=== PATIENT | female | born 1965 | race Caucasian/White ===

== ENCOUNTER → 2016-04-23 | Outpatient (CLI) | payer MEDICARE, OTHER ==
[~2016-04-23] VITALS: Ht 165.1 cm; Wt 94.3 kg
[~2016-04-23] MED LIST: ALBU0.63 IH; ASPI-586 PO; ATOR40TA70 PO; CARV3.122 PO; CITA40TA11 PO; DOCU-143 PO; FAMO20TA3 PO; FURO40TA4 PO; GABA800T2 PO; GLIP5TAB13 PO; HYDR-3812 PO; HYDR-700 PO; LAMO25TA PO; LEVO50TA6 PO; LIDOCAINE 1% INJ 20 ML (XYLOCAINE) VIAL INJ ONE; LIDOCAINE 1% INJ 20 ML (XYLOCAINE) VIAL ONE; LISI2.5T PO; PANT40TA2 PO; TIZA4TAB3 PO; TOPI50TA13 PO; TRAM50TA2 PO; TRAZ100T92 PO
[2016-04-23 12:46] VITALS: BP 138/80
[2016-04-23 13:49] VITALS: BP 138/80
--- NOTE | 2016-04-23 15:25 | Diagnostic Imaging Report ---
EXAMINATION: Ultrasound-guided biopsy of a breast mass. A metallic clip placed to holland biopsy site. INDICATION: Left breast mass. CONSENT: Informed consent was obtained from the patient. The risks, benefits, potential complications and alternatives were reviewed and all questions answered to the patient's satisfaction. FINDINGS: Ultrasound images demonstrate a 10:00 left breast mass. PROCEDURE: After sterile preparation and draping, 1% lidocaine was utilized for local anesthesia. A 13-gauge guide needle was introduced under live ultrasound guidance to the level of the lesion. Good needle position was documented with ultrasound images. 14-gauge biopsy needle was utilized and core biopsies were performed. Multiple samples were obtained and sent to pathology. A metallic clip was placed to holland the site of the biopsy. A subsequent mammogram is performed and confirms the proper positioning of the clip. The patient tolerated the procedure well with no immediate complications. IMPRESSION: Successful ultrasound-guided core biopsy of 10:00, left breast mass. Dictated by: Dictated on workstation # [id number]
--- NOTE | 2016-04-23 15:26 | Diagnostic Imaging Report ---
INDICATION: Left breast ultrasound. INDICATION: Palpable lump in the left breast. COMPARISON: The study is correlated with an outside mammogram dated 04/16/2016. FINDINGS: At the 10 o'clock zone 5 cm from the nipple, there is a 1.8 x 0.8 x 0.7 cm irregular hypoechoic mass. There is no significant shadowing. There is mildly increased internal vascularity seen with color Doppler. No other lesion is seen in the retroareolar area or four quadrants of the breasts. No axillary enlarged lymph nodes are seen. IMPRESSION: 1.8 cm irregular suspicious left breast mass at the 10 o'clock zone. An ultrasound-guided biopsy was performed just after the scan. ACR BI-RADS Category 4B: Intermediate suspicion of malignancy. Dictated by: Dictated on workstation # [id number]
--- NOTE | 2016-04-23 20:44 | Diagnostic Imaging Report ---
EXAM: CC and the lateral views of the left breast. The current study was also evaluated with a Computer Aided Detection (CAD) system. COMPARISON: 08/26/2015. INDICATION: Documentation of clip position after ultrasound-guided biopsy. FINDINGS / IMPRESSION: Satisfactory placement of a medial left breast clip after ultrasound-guided biopsy is the seen. Pathology results are pending. Dictated by: Dictated on workstation # [id number]
== END ==
LOC: RAD 12:05
PROVIDERS: ATTEND Nurse Practitioner Family
DX: R92.8 Other abnormal and inconclusive findings on diagnostic imaging of breast (principal)
CPT/HCPCS: 19083; 76641; 88305; 88341; 88342

== ENCOUNTER → 2016-04-25 | Outpatient (CLI) | payer MEDICARE, OTHER ==
[~2016-04-25] MED LIST changes: -LIDOCAINE 1% INJ 20 ML (XYLOCAINE) VIAL INJ ONE; -LIDOCAINE 1% INJ 20 ML (XYLOCAINE) VIAL ONE
--- NOTE | 2016-04-25 13:58 | Diagnostic Imaging Report ---
PROCEDURE: CT abdomen without contrast. TECHNIQUE: Multiple contiguous axial images were obtained through the abdomen without the use of intravenous contrast. INDICATION: Right and left lower quadrant abdominal pain. Lung bases are clear. There are no effusions. There is a small cyst in the inferior aspect of the posterior segment right lobe of liver. Liver otherwise normal. Gallbladder is surgically absent. The common duct is not dilated. Pancreas is unremarkable. Spleen is not enlarged. There is food residue in the stomach. Adrenals and kidneys appear normal. Visualized portions of large and small bowel appear normal. IMPRESSION: Negative CT abdomen. Dictated by: Dictated on workstation # [id number]
== END ==
LOC: RAD 13:01
PROVIDERS: ATTEND Nurse Practitioner Family
DX: R93.2 Abnormal findings on diagnostic imaging of liver and biliary tract (principal)
CPT/HCPCS: 74150

== ENCOUNTER → 2016-05-01 | Outpatient (CLI) | payer MEDICARE, OTHER ==
[~2016-05-01] MED LIST changes: +GADOBUTROL 10 MMOL/10 ML (GADAVIST) VIAL IV ONE
--- NOTE | 2016-05-01 13:31 | Diagnostic Imaging Report ---
PROCEDURE: MR imaging of the brain with and without contrast. TECHNIQUE: Multiplanar, multisequence MR imaging of the brain was performed with and without contrast. INDICATION: Right hand and bilateral leg tremors. COMPARISON: There are no prior studies available for comparison. FINDINGS: There is no mass, shift of the midline, or hemorrhage to suggest an acute intracranial abnormality. There is no abnormal enhancement on the postcontrast series to indicate a neoplastic or infectious process either. Furthermore, there is no signal abnormality arising from the brain on the diffusion series to indicate an area of acute ischemia. There are a few small areas of increased signal in the periventricular white matter on the right on the FLAIR series. These findings are nonspecific but may be secondary to encephalomalacia from microvascular ischemia. The ventricles and sulci are not abnormally dilated. There is mild cortical atrophy present. The degree of atrophy is consistent with the patient's age. The sella is not enlarged, and the expected carotid flow voids are evident bilaterally. The orbits are symmetrical and within normal limits. The sinuses are generally clear. The seventh and eighth nerve complexes are unremarkable. IMPRESSION: 1. There is no evidence for an acute intracranial abnormality. There is no sign of a mass lesion either. 2. The small areas of altered signal in the periventricular white matter on the right on the FLAIR series are nonspecific. These may be related to encephalomalacia from microvascular ischemia. Dictated by: Dictated on workstation # [id number]
== END ==
LOC: RAD 08:43
PROVIDERS: ATTEND Psychiatry & Neurology Neurology
DX: G20 Parkinson's disease (principal)
CPT/HCPCS: 70553

== ENCOUNTER 2016-05-25 10:30 | Outpatient (CLI) | payer MEDICARE ==
[~2016-05-25] VITALS: Ht 165.1 cm; Wt 93.4 kg
[2016-05-25] MEDS ORDERED: LAMO25TA PO (10:51)
[2016-05-25] MEDS ORDERED: HYDR-700 PO (10:51)
[2016-05-25] MEDS ORDERED: TRAZ100T92 PO (10:51)
[2016-05-25] MEDS ORDERED: LISI2.5T PO (10:51)
[2016-05-25] MEDS ORDERED: ASPI-586 PO (10:51)
[2016-05-25] MEDS ORDERED: FAMO20TA3 PO (10:51)
[2016-05-25] MEDS ORDERED: TRAM50TA2 PO (10:51)
[2016-05-25] MEDS ORDERED: GABA800T2 PO (10:51)
[2016-05-25] MEDS ORDERED: CITA40TA11 PO (10:51)
[2016-05-25] MEDS ORDERED: ATOR40TA70 PO (10:51)
[2016-05-25] MEDS ORDERED: TIZA4TAB3 PO (10:51)
[2016-05-25] MEDS ORDERED: FURO40TA4 PO (10:51)
[2016-05-25] MEDS ORDERED: LEVO50TA6 PO (10:51)
[2016-05-25] MEDS ORDERED: TOPI50TA13 PO (10:51)
[2016-05-25] MEDS ORDERED: ALBU0.63 IH (10:51)
[2016-05-25] MEDS ORDERED: GLIP5TAB13 PO (10:51)
[2016-05-25] MEDS ORDERED: CARV3.122 PO (10:51)
[2016-06-21] MEDS ORDERED: HYDR-3812 PO (09:59)
[2016-06-21] MEDS ORDERED: DOCU-143 PO (09:59)
== END 2016-05-25 11:26 ==
LOC: PREOP 10:30
PROVIDERS: ATTEND Surgery
DX: Z01.818 Encounter for other preprocedural examination (principal); K21.9 Gastro-esophageal reflux disease without esophagitis; R11.2 Nausea with vomiting, unspecified; R19.7 Diarrhea, unspecified

== ENCOUNTER 2016-05-29 10:11 | Day surgery (SDC) | payer MEDICARE ==
[~2016-05-29] VITALS: Ht 165.1 cm; Wt 93.4 kg
[~2016-05-29 10:11] MED LIST changes: -DOCU-143 PO; -GADOBUTROL 10 MMOL/10 ML (GADAVIST) VIAL IV ONE; -HYDR-3812 PO; -PANT40TA2 PO
[2016-05-29] MEDS ORDERED: NS IV 1000 ML 1,000 ML ONE (10:13)
[2016-05-29] MEDS ORDERED: NS IV 1000 ML 1,000 ML IV STA (10:18)
[2016-05-29 10:20] VITALS: BP 110/72
[2016-05-29] MEDS ORDERED: FLUMAZENIL (ROMAZICON) 0.1 MG/ML 5 ML VIAL INJ PRN (10:30)
[2016-05-29] MEDS ORDERED: NALOXONE 0.4 MG/ML 1 ML (NARCAN) VIAL IVP PRN (10:30)
--- NOTE | 2016-05-29 10:51 | Progress Note-Pre Operative ---
Pre-Operative Progress Note H&P Reviewed The H&P was reviewed, patient examined and no changes noted. Date H&P Reviewed: May 29, 2016 Time H&P Reviewed: 10:51 Pre-Operative Diagnosis: GERD, n/v diarrhea GERARDO JARAMILLO DO May 29, 2016 10:51 am
[2016-05-29] MEDS ORDERED: proPOfol 200 MG/20 ML (DIPRIVAN) VIAL IV ONE (10:55)
[2016-05-29] MEDS ORDERED: MIDAZOLAM 2 MG/2 ML (VERSED) VIAL ONE ×2 (10:55)
--- NOTE | 2016-05-29 11:37 | Progress Note-Post Operative ---
Post-Operative Progess Note Pre-Operative Diagnosis GERD, n/v diarrhea Post-Operative Diagnosis gastritis with erosions, hiatal hernia, normal colon Post-Op Procedure Note Date of Procedure: May 29, 2016 Name of Procedure: egd c biopsy, colonoscopy with random cold biopsies Procedure Note/Findings see note Anesthesia Type per booth manager Estimated blood loss (mL): none Specimen(s) collected antrum, random colon GERARDO JARAMILLO DO May 29, 2016 11:37
[2016-05-29] MEDS ORDERED: PANT40TA2 PO (11:40)
--- NOTE | 2016-05-29 11:40 | Discharge Inst-Simple/Standard ---
Discharge Inst-Standard Discharge Medications New, Converted or Re-Newed RX: Transmitted to Pharmacy Patient Instructions/Follow Up Plan of Care/Instructions/FU: 2 weeks Monisha Activity as Tolerated: Yes Discharge Diet: Regular Diet (small frequent meals) GERARDO JARAMILLO DO May 29, 2016 11:40
--- NOTE | 2016-05-29 11:57 | PROCEDURE REPORT ---
PROCEDURE PHYSICIAN: GERARDO JARAMILLO DATE OF PROCEDURE: 05/29/2016 PREOPERATIVE DIAGNOSIS: GERD, nausea, vomiting, diarrhea. POSTOPERATIVE DIAGNOSES: 1. Gastritis with erosions. 2. Hiatal hernia. 3. Normal colon. PROCEDURE: 1. EGD with biopsy. 2. Colonoscopy with random cold biopsies. SURGEON: Monisha. ANESTHESIA: Per SOLIDWORKS DESIGNER. ESTIMATED BLOOD LOSS: None. COMPLICATIONS: None. INDICATIONS: The patient is a 51-year-old female who has been having 2 months of nausea, vomiting, diarrhea and reflux symptoms. She understands the risks and benefits of the procedures and wished to proceed with procedures. Consent was signed on the chart. PROCEDURE: The patient was taken to the endoscopy suite, placed left lateral recumbent position. Timeout was performed. The scope was then inserted the mouth, down the esophagus, stomach and into the duodenum without difficulty. There were no polyps, masses or ulcerations within the duodenum. The scope was slowly retracted back to the stomach where it was further insufflated demonstrating erythematous changes with some erosions that had slight oozing from them. Biopsy of the antrum was obtained. The scope was retroflexed noting a small hiatal hernia. The scope was returned to its normal position and slowly withdrawn until withdrawn back into the distal esophagus. There were no polyps, masses, ulcerations or erythema present. The scope was slowly retracted with completely removed noting no other pathology. COLONOSCOPY: Digital rectal exam was performed. There were no palpable polyps, masses or ulcerations. The scope was inserted in the rectum and advanced all way to the cecum with minimal difficulty. Prep was adequate. The scope was then slowly retracted. There were no polyps, masses, ulcerations of the cecum, ascending, transverse, descending and sigmoid colon. The scope was being retracted, random cold biopsies were obtained. Once in the rectum, the scope was also retroflexed noting no further pathology. The scope was returned to its normal position and slowly withdrawn until completely removed. The patient tolerated procedure well without any complications. She was taken to the recovery room in stable condition. RECOMMENDATIONS: The patient will be started on Protonix 40 mg daily. We will see how she is does in approximately 2 to 3 weeks and go over biopsy results. Job ID: [id number] Dictated Date: 05/29/2016 11:44:32 On Air Announcer Date: 05/29/2016 11:50:23 / ruddy
[2016-05-29 12:05] VITALS: BP 113/74
[2016-05-29 12:35] VITALS: BP 117/63
[2016-05-29 12:45] VITALS: BP 117/63
[2016-06-21] MEDS ORDERED: HYDR-3812 PO (09:59)
[2016-06-21] MEDS ORDERED: DOCU-143 PO (09:59)
== END 2016-05-29 12:45 | disposition home or self-care (01) ==
LOC: ENDO 10:11
PROVIDERS: ATTEND Surgery
DX: R19.7 Diarrhea, unspecified (principal); K29.70 Gastritis, unspecified, without bleeding; K44.9 Diaphragmatic hernia without obstruction or gangrene
CPT/HCPCS: 88305; 88342

== ENCOUNTER 2016-06-18 10:18 | Outpatient (CLI) | payer MEDICARE ==
[~2016-06-18] VITALS: Ht 165.1 cm; Wt 98.0 kg
[~2016-06-18 10:18] MED LIST changes: +PANT40TA2 PO
[2016-06-18 10:38] VITALS: BP 105/60
[2016-06-18 11:06] LABS: BASOPHILS % (AUTO) 1 % (0-10); EOSINOPHILS # (AUTO) 0.1 10^3/uL (0.0-0.3); EOSINOPHILS % (AUTO) 3 % (0-10); LYMPHOCYTES # (AUTO) 2.2 X 10^3 (1.0-4.0); LYMPHOCYTES % (AUTO) 47 % (12-44); MEAN CORPUSCULAR HEMOGLOBIN 31 PG (25-34); MEAN CORPUSCULAR HGB CONC 33 G/DL (32-36); MEAN CORPUSCULAR VOLUME 95 FL (80-99); MEAN PLATELET VOLUME 10.6 FL (7.4-10.4); MONOCYTES # (AUTO) 0.3 X 10^3 (0.0-1.0); MONOCYTES % (AUTO) 6 % (0-12); NEUTROPHILS # (AUTO) 2.1 X 10^3 (1.8-7.8); NEUTROPHILS % (AUTO) 44 % (42-75); PLATELET COUNT 176 10^3/uL (130-400); RED BLOOD COUNT 4.13 10^6/uL (4.35-5.85); RED CELL DISTRIBUTION WIDTH 12.9 % (10.0-14.5); WHITE BLOOD COUNT 4.7 10^3/uL (4.3-11.0)
[2016-06-18 11:34] LABS: ANION GAP 7 MMOL/L (5-14); BLOOD UREA NITROGEN 9 MG/DL (7-18); BUN/CREATININE RATIO 12; CALCIUM 8.6 MG/DL (8.5-10.1); CARBON DIOXIDE 26 MMOL/L (21-32); CHLORIDE 108 MMOL/L (98-107); CREATININE SERUM 0.77 MG/DL (0.60-1.30); GFR ESTIMATED > 60; GLUCOSE 124 MG/DL (70-105); POTASSIUM 3.7 MMOL/L (3.6-5.0); SODIUM 141 MMOL/L (135-145)
[2016-06-21] MEDS ORDERED: HYDR-3812 PO (09:59)
[2016-06-21] MEDS ORDERED: DOCU-143 PO (09:59)
== END 2016-06-18 14:04 | disposition home or self-care (01) ==
LOC: PREOP 10:18
PROVIDERS: ATTEND Surgery
DX: Z01.812 Encounter for preprocedural laboratory examination (principal); N63 Unspecified lump in breast
CPT/HCPCS: 36415; 80048; 85025

== ENCOUNTER 2016-06-21 06:38 | Day surgery (SDC) | payer MEDICARE ==
[~2016-06-21] VITALS: Ht 165.1 cm; Wt 98.0 kg
[2016-06-21] MEDS ORDERED: CLINDAMYCIN 600 MG/50 ML IVPB 50 ML IV ONE ×2 (07:15→07:30)
[2016-06-21] MEDS ORDERED: CATHETER FLUSH 10 ML SYR IV PRN (07:30)
[2016-06-21 07:32] VITALS: BP 115/69
[2016-06-21] MEDS ORDERED: LIDOCAINE 1% INJ 20 ML (XYLOCAINE) VIAL ONE ×2 (07:38→09:08)
--- NOTE | 2016-06-21 07:46 | Progress Note-Pre Operative ---
Pre-Operative Progress Note H&P Reviewed The H&P was reviewed, patient examined and no changes noted. Date H&P Reviewed: Jun 21, 2016 Time H&P Reviewed: 07:45 Pre-Operative Diagnosis: left breast mass GERARDO JARAMILLO DO Jun 21, 2016 7:46 am
[2016-06-21] MEDS ORDERED: LIDOCAINE 1% INJ 20 ML (XYLOCAINE) VIAL INJ NR (08:00)
--- NOTE | 2016-06-21 08:34 | Diagnostic Imaging Report ---
PROCEDURE: Ultrasound-guided hookwire needle localization of breast mass . INDICATION: Left breast mass. CONSENT: Informed consent was obtained from the patient. The risks, benefits, potential complications and alternatives were reviewed and all questions answered to the patient's satisfaction. FINDINGS: Ultrasound images demonstrate an irregular left breast mass at 10:00 zone 5 CM from the nipple. PROCEDURE: After sterile preparation and draping, 1% lidocaine was utilized for local anesthesia. A hookwire introducer needle was advanced under live ultrasound guidance to the level of the lesion from a lateral to medial approach. Good needle position was documented with ultrasound images. The hookwire was deployed and the needle withdrawn, simultaneously. The patient tolerated the procedure well with no immediate complications. IMPRESSION: Successful ultrasound hookwire needle localization of 10:00 left breast mass. Dictated by: Dictated on workstation # [id number]
[2016-06-21] MEDS ORDERED: LACTATED RINGERS 1,000 ML IV PRN (08:49)
[2016-06-21] MEDS ORDERED: proPOfol 200 MG/20 ML (DIPRIVAN) VIAL IV ONE (09:04)
[2016-06-21] MEDS ORDERED: LACTATED RINGERS 1,000 ML IV ONE (09:04)
[2016-06-21] MEDS ORDERED: ONDANSETRON 4 MG/2 ML (SDV) Z0FRAN ONE (09:04)
[2016-06-21] MEDS ORDERED: SEVOFLURANE (ULTANE) 15 ML INHAL SOLN ONE (09:04)
[2016-06-21] MEDS ORDERED: LIDOCAINE PF 2% 10 ML (XYLOCAINE) AMP ONE (09:04)
[2016-06-21] MEDS ORDERED: fentaNYL INJECTION 100 MCG/2 ML AMP ONE (09:05)
[2016-06-21] MEDS ORDERED: MIDAZOLAM 2 MG/2 ML (VERSED) VIAL ONE (09:05)
[2016-06-21] MEDS ORDERED: BUPIVACAINE 0.5% 30 ML (SENSORCAINE) VIAL ONE (09:08)
--- NOTE | 2016-06-21 09:58 | Progress Note-Post Operative ---
Post-Operative Progess Note Surgeon (s)/Rn Orthopaedics (s) Surgeon GERARDO JARAMILLO DO Rn Orthopaedics: Shaquille Nwagwu Pre-Operative Diagnosis left breast mass Post-Operative Diagnosis same Post-Op Procedure Note Date of Procedure: Jun 21, 2016 Name of Procedure Performed: left breast excisional biopsy wire localized Description of the Procedure: see note Findings of the Procedure note Anesthesia Type general Estimated blood loss (mL): minimal Specimen(s) collected/removed left breast mass GERARDO JARAMILLO DO Jun 21, 2016 9:58 am
[2016-06-21] MEDS ORDERED: HYDR-3812 PO (09:59)
[2016-06-21] MEDS ORDERED: DOCU-143 PO (09:59)
[2016-06-21] MEDS ORDERED: HYDROcodone/APAP 5 MG/325 MG (LORTAB) TAB PO PRN (10:00)
--- NOTE | 2016-06-21 10:02 | Discharge Inst-Simple/Standard ---
Discharge Inst-Standard Discharge Medications New, Converted or Re-Newed RX: RX on Chart Patient Instructions/Follow Up Plan of Care/Instructions/FU: 2 weeks Monisha Activity as Tolerated: No Discharge Diet: Regular Diet Other Inst to Patient Follow up Appt: Make appointment for 2 week. Instructions: No lifting greater than 10 pounds. No strenuous activity. May shower in 24 hours, no tub bath or soaking. Use incentive spirometer at home as directed. No Smoking Skin/Wound Care: May remove bandages in 24 hours. You need to leave the white strips over incision on they will fall off on their own. Symptoms to Report: Appetite Changes, Extremity Discoloration, Numbness/Tingling, Swelling Increased , Bleeding Excessive, Eyesight Changes, Pain Increased, Urine Color Change, Constipation(Persistent), Fever over 101 degree F, Pain/Pressure in chest, Urinating Difficulty, Cough Up/Vomit Blood, Heart Beat Irreg/Pounding, Pain/ Pressure in jaw, Vaginal Bleeding Increase, Cramps in feet or legs, Lightheadedness, Pain/Pressure in shoulder, Diarrhea(Persistent), Memory Changes Suddenly, Questions/Concerns, Weight gain consecutive days, Dizziness/ Fainting, Nausea/Vomiting, Shortness of Breath, Weight gain over 2 pounds If questions or concerns contact your physician Or seek help at emergency department. GERARDO JARAMILLO DO Jun 21, 2016 10:01 am
--- NOTE | 2016-06-21 10:06 | Diagnostic Imaging Report ---
EXAMINATION: Specimen radiograph of breast lumpectomy biopsy post hookwire needle localization placement. INDICATION: Check adequacy of left breast hookwire guided excisional biopsy. FINDINGS: The left breast nodule and the biopsy clip of interest appears to be present in the specimen and therefore the specimen is considered adequate. IMPRESSION: Specimen radiograph demonstrates the hookwire and surrounding specimen that appears to contain the left breast nodule marked with a wire. Pathology is pending. Dictated by: Dictated on workstation # [id number]
[2016-06-21] MEDS ORDERED: morphine INJ 10 MG/ML 1ML (SYR OR VIAL) IVP PRN (10:15)
[2016-06-21] MEDS ORDERED: ONDANSETRON 4 MG/2 ML (SDV) Z0FRAN IVP PRN (10:15)
[2016-06-21 11:05] VITALS: BP 119/76
[2016-06-21 11:35] VITALS: BP 111/65
[2016-06-21 12:05] VITALS: BP 119/76
--- NOTE | 2016-06-21 14:58 | OPERATIVE REPORT ---
DATE OF SERVICE: 06/21/2016 PREOPERATIVE DIAGNOSIS: Left breast mass. POSTOPERATIVE DIAGNOSIS: Left breast mass. PROCEDURE PERFORMED: Left breast biopsy wire localized. SURGEON: Gerardo Bearden DO ANESTHESIA: General. ESTIMATED BLOOD LOSS: Minimal. COMPLICATIONS: None. INDICATION: The patient is a 51-year-old female with left breast mass. She had biopsy previously performed. The patient is still concerned and anxious and wishes to proceed with excisional biopsy. She understands risks and benefits of the procedure and wishes to proceed with the procedure. Consent was signed and on the chart. DESCRIPTION OF PROCEDURE: The patient was taken to the operating suite, she was prepped and draped in a sterile fashion. Surgical pause was performed. Local anesthetic with 0.5% Marcaine and 1% Xylocaine in a 50/50 ratio was used to anesthetize the area. A #15 blade scalpel was used to make an incision in which the wire was incorporated into the incision. Cautery was used to dissect down circumferentially around the wire. The diameter was approximately 4 cm in diameter. Dissection was taken down to the pectoral fascias and the area was then amputated. The specimen had clips placed on it with 2 clips superiorly and 4 clips laterally. Specimen sent for radiological evidence of removal which did demonstrate the tip of the wire and the previously placed clip within the specimen. Copious amounts of irrigation was then used to irrigate the wound. Then 3-0 Vicryl was used to reapproximate subcutaneous tissues. The skin was then closed using 4-0 Vicryl in a running subcuticular fashion. The area was then washed and dried and Dermabond was placed over the incision. The patient tolerated the procedure well without any complications. She was taken to the recovery room in stable condition. Job ID: [id number] DocumentID: [id number] Dictated Date: 06/21/2016 14:02:03 Test Desk Trouble Locator Date: 06/21/2016 14:57:53 Dictated By: GERARDO BEARDEN DO
--- NOTE | 2016-06-21 20:53 | Diagnostic Imaging Report ---
CC and lateral views of the left breast. INDICATION: Documentation of needle localization wire position. FINDINGS: There is good localization of a nodule in the posterior aspect of the 10 o'clock zone in the left breast marked with a biopsy clip adjacent to the needle localization wire located at its lateral aspect. IMPRESSION: Satisfactory position of the needle localization wire marking medial left breast nodule for surgery. Dictated by: Dictated on workstation # [id number]
== END 2016-06-21 12:05 | disposition home or self-care (01) ==
LOC: SDC 06:38
PROVIDERS: ATTEND Surgery
DX: D24.2 Benign neoplasm of left breast (principal); N60.92 Unspecified benign mammary dysplasia of left breast; E11.9 Type 2 diabetes mellitus without complications
CPT/HCPCS: 19285; 76098; 82962; 87081; 88305; 88341; 88342

== ENCOUNTER → 2016-08-01 | Outpatient (CLI) | payer MEDICARE, OTHER ==
[~2016-08-01] MED LIST changes: +BARIUM SUSPENSION 105% (LIQUID POLIBAR PLUS) 240 ML/DOSE PO ONE; +BARIUM SUSPENSION 60% (LIQUID EZ PAQUE) 240 ML DOSE PO ONE; +DOCU-143 PO; +HYDR-3812 PO
--- NOTE | 2016-08-01 09:56 | Diagnostic Imaging Report ---
EXAMINATION: Barium swallow double-contrast. INDICATION: Dysphagia Fluoroscopy time: 59 seconds TECHNIQUE: Belt And Link Assembly Supervisor image of the chest was performed. Subsequently, the patient was given gas forming granules for oral ingestion followed by thick and thin barium to drink. Swallowing through the esophagus was observed with fluoroscopy and overhead images, as well as multiple spot images in the upright and prone positions, were taken. FINDINGS: Belt And Link Assembly Supervisor image of the chest demonstrate no significant abnormality. Minimal transient reflux to the distal esophagus is seen during the study. No abnormal motility is seen otherwise. The esophagus is normal in caliber and contour. There is no mucosal abnormality, diverticulum or filling defect to suggest a mass. There is a tiny sliding hiatal hernia demonstrated. IMPRESSION: Tiny sliding hiatal hernia. Minimal transient reflux seen during the study, to the distal esophagus. Dictated by: Dictated on workstation # [id number]
== END ==
LOC: RAD 08:36
PROVIDERS: ATTEND Nurse Practitioner Family
DX: K44.9 Diaphragmatic hernia without obstruction or gangrene (principal); R13.13 Dysphagia, pharyngeal phase
CPT/HCPCS: 74220

== ENCOUNTER 2016-08-12 11:41 | Emergency (ER) | payer MEDICARE ==
[~2016-08-12] VITALS: Ht 165.1 cm; Wt 96.2 kg
[~2016-08-12 11:41] MED LIST changes: -BARIUM SUSPENSION 105% (LIQUID POLIBAR PLUS) 240 ML/DOSE PO ONE; -BARIUM SUSPENSION 60% (LIQUID EZ PAQUE) 240 ML DOSE PO ONE
[2016-08-12] MEDS ORDERED: ZIPR80CA23 (12:00)
[2016-08-12] MEDS ORDERED: BUSP10TA95 (12:00)
[2016-08-12] MEDS ORDERED: OXCA600T (12:00)
--- NOTE | 2016-08-12 12:27 | Diagnostic Imaging Report ---
EXAMINATION: Left ankle at 1237h. INDICATION: Injury ankle pain 3 views were obtained. There are no prior studies available for comparison. There is no fracture, dislocation or acute bony abnormality evident. The ankle mortise is not widened and the talar dome is smooth. There is perhaps mild soft tissue edema about the ankle joint. Incidental note is made of a calcaneal spur. IMPRESSION: There is no evidence for an acute bony abnormality. Dictated by: Dictated on workstation # [id number]
--- NOTE | 2016-08-12 12:28 | Diagnostic Imaging Report ---
EXAMINATION: Left knee at 12:26 PM. INDICATION: Knee pain. FINDINGS: Three views were obtained. There is no fracture, dislocation or acute bony abnormality evident. There is mild narrowing of the medial compartment of the knee joint. The knee joint is otherwise well-maintained. The soft tissues are unremarkable. IMPRESSION: There is no evidence for an acute bony abnormality. Dictated by: Dictated on workstation # [id number]
--- NOTE | 2016-08-12 12:31 | ED Lower Extremity ---
General Chief Complaint: Lower Extremity Stated Complaint: L KNEE/ANKLE/FOOT INJ Nursing Triage Note: left knee/ankle pain. twisted knee/ankle in june, again 08/10/16 Nursing Sepsis Screen: No Definite Risk Source: patient Exam Limitations: no limitations History of Present Illness Time seen by provider: 12:02 Initial Comments 51-year-old female patient presents to the emergency department with complaints of twisting her left knee and ankle in June and again on 08/10/16. Reports increased pain. Onset: other Pain/Injury Location: left knee, left ankle Method of Injury: twisted Modifying Factors: Worse With Movement Allergies and Home Medications Allergies Coded Allergies: cephalexin (Verified Allergy, Mild, 06/21/16) Penicillins (Verified Allergy, Unknown, 06/18/16) Sulfa (Sulfonamide Antibiotics) (Verified Allergy, Unknown, 06/18/16) clindamycin (Verified Allergy, Unknown, 08/12/16) cyclobenzaprine (Verified Allergy, Unknown, 08/12/16) sucralfate (Verified Allergy, Unknown, 06/18/16) sulfamethoxazole (Verified Allergy, Unknown, 08/12/16) trimethoprim (Verified Allergy, Unknown, 08/12/16) Uncoded Allergies: cholafil (Allergy, Unknown, 08/12/16) Home Medications Albuterol Sulfate 0.63 Mg/3 Ml Vial.neb, 0.63 MG IH Q4H PRN for SHORTNESS OF BREATH, (Reported) Aspirin 81 Mg Tablet.dr, 81 MG PO DAILY, (Reported) Atorvastatin Calcium 40 Mg Tablet, 40 MG PO HS, (Reported) Buspirone HCl 10 Mg Tablet, #30 (Reported) Citalopram Hydrobromide 40 Mg Tablet, 40 MG PO DAILY, (Reported) Furosemide 40 Mg Tablet, 40 MG PO DAILY, (Reported) Gabapentin 800 Mg Tablet, 800 MG PO TID, (Reported) Glipizide 5 Mg Tablet, 2.5 MG PO DAILY, (Reported) take 1/2 of 5mg tab Hydroxyzine HCl 25 Mg Tablet, 25 MG PO BID PRN for ANXIETY, (Reported) Lamotrigine 25 Mg Tablet, 50 MG PO DAILY, (Reported) take 2 (25mg) tabs Levothyroxine Sodium 50 Mcg Tablet, 50 MCG PO DAILY, (Reported) Lisinopril 2.5 Mg Tablet, 2.5 MG PO DAILY, (Reported) Oxcarbazepine 600 Mg Tablet, #60 (Reported) Pantoprazole Sodium 40 Mg Tablet.dr, 40 MG PO DAILY, #30 Ref 3 Prescribed by: GERARDO JARAMILLO on 05/29/16 1140 Tizanidine HCl 4 Mg Tablet, 4 MG PO TID, (Reported) Topiramate 50 Mg Tablet, 50 MG PO BID, (Reported) Ziprasidone HCl 80 Mg Capsule, #30 (Reported) Constitutional: no symptoms reported Respiratory: no symptoms reported Cardiovascular: no symptoms reported Musculoskeletal: see HPI, No back pain, joint pain, No joint swelling, No neck pain Skin: No change in color Psychiatric/Neurological: No Symptoms Reported All Other Systems Reviewed Negative Unless Noted: Yes (Negative excepted noted.) Past Rozbzqm-Yywubm-Jngvjy Hx Patient Social History Alcohol Use: Denies Use Recreational Drug Use: No Smoking Status: Current Everyday Smoker Type Used: Cigarettes 2nd Hand Smoke Exposure: Yes Recent Foreign Travel: No Contact w/Someone Who Travel: No Recent Infectious Disease Expo: No Recent Hopitalizations: No Immunizations Up To Date Date of Pneumonia Vaccine: Dec 26, 2015 Date of Influenza Vaccine: Dec 26, 2015 Seasonal Allergies Seasonal Allergies: Yes Surgeries HX Surgeries: Yes (DXLS) Surgeries: Appendectomy, Section, Gallbladder, Hysterectomy Respiratory Hx Respiratory Disorders: Yes Respiratory Disorders: Asthma, COPD Cardiovascular Hx Cardiac Disorders: Yes (MILD [place]-2013) Cardiac Disorders: Hypertension Neurological Hx Neurological Disorders: Yes Neurological Disorders: Headaches /Migraines, Neuropathy, Parkinson's Disease Reproductive System : No Hx Reproductive Disorders: No Sexually Transmitted Disease: No HIV/AIDS: No 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, Menopausal Genitourinary Hx Genitourinary Disorders: No Gastrointestinal Hx Gastrointestinal Disorders: Yes (spot on liver) Gastrointestinal Disorders: Gastroesophageal Reflux, Chronic Diarrhea, Hiatal Hernia, Irritable Bowel Musculoskeletal Hx Musculoskeletal Disorders: Yes (restless syndrome) Musculoskeletal Disorders: Fibromyalgia Endocrine Hx Endocrine Disorders: Yes Endocrine Disorders: Hypothyroidsim, Diabetes, Non-Insulin dep HEENT HX ENT Disorders: Yes (GLASSES) Loss of Vision: Bilateral Hearing Impairment: Denies Cancer Hx Cancer: No Psychosocial Hx Psychiatric Problems: Yes Behavioral Health Disorders: Anxiety, PTSD, Bipolar, Depression Integumentary HX Skin/Integumentary Disorder: No Blood Transfusions Hx Blood Disorders: Yes (ANEMIA) Adverse Reaction to a Blood Tr: No Reviewed Nursing Assessment Reviewed/Agree w Nursing PMH: Yes Family Medical History Significant Family History: No Pertinent Family Hx Physical Exam Vital Signs Vital Sign - Last 12Hours 08/12/16 12:02 Temp 97.9 Pulse 86 Resp 16 B/P (MAP) 114/63 Pulse Ox 96 O2 Delivery Room Air Capillary Refill : Less Than 3 Seconds General Appearance: WD/WN, no apparent distress Cardiovascular: normal peripheral pulses, regular rate, rhythm, no edema, no murmur Respiratory: lungs clear, normal breath sounds, no respiratory distress Hips: bilateral hip non-tender, bilateral hip normal inspection, bilateral hip normal range of motion, bilateral hip no evidence of injury Legs: bilateral leg non-tender, bilateral leg normal inspection, bilateral leg normal range of motion, bilateral leg no evidence of injury Knees: right knee non-tender, bilateral knee normal inspection, bilateral knee normal range of motion, bilateral knee no evidence of injury, left knee bone tenderness (generalized tenderness.), left knee pain, left knee soft tissue tenderness (generalized tenderness.) Ankles: right ankle non-tender, bilateral ankle normal inspection, bilateral ankle normal range of motion, bilateral ankle no evidence of injury, left ankle bone tenderness (generalized tenderness when patient is focused on the exam. when discussing her med list, patient shows no pain response with palpation.), left ankle pain, left ankle soft tissue tenderness (generalized tenderness when patient is focused on the exam. when discussing her med list, patient shows no pain response with palpation.) Feet: bilateral foot non-tender, bilateral foot normal inspection, bilateral foot normal range of motion, bilateral foot no evidence of injury Neurologic/Tendon: normal sensation, normal motor functions, normal tendon functions, responds to pain, no evidence tendon injury Neurologic/Psychiatric: no motor/sensory deficits, alert, normal mood/affect, oriented x 3 Skin: normal color, warm/dry Progress/Results/Core Measures Results/Orders My Orders Orders - DANIEL AGUILAR Hydrocodone/Apap 5/325 Tablet (Lortab 5 (08/12/16 12:32) Vital Signs/I&O Vital Sign - Last 12Hours 08/12/16 08/12/16 12:02 12:45 Temp 97.9 97.9 Pulse 86 86 Resp 16 16 B/P (MAP) 114/63 Pulse Ox 96 96 O2 Delivery Room Air Blood Pressure Mean: 80 Diagnostic Imaging Diagonstic Imaging: Xray Plain Films/CT/US/NM/MRI: knee Comments There is no fracture, dislocation or acute bony abnormality evident. There is mild narrowing of the medial compartment of the knee joint. The knee joint is otherwise well-maintained. The soft tissues are unremarkable. IMPRESSION: There is no evidence for an acute bony abnormality. Dictated on workstation # [id number] Reviewed: Reviewed by Me (radiology report reviewed by me) Diagonstic Imaging: Xray Plain Films/CT/US/NM/MRI: ankle Comments There is no fracture, dislocation or acute bony abnormality evident. The ankle mortise is not widened and the talar dome is smooth. There is perhaps mild soft tissue edema about the ankle joint. Incidental note is made of a calcaneal spur. IMPRESSION: There is no evidence for an acute bony abnormality. Dictated on workstation # [id number] Reviewed: Reviewed by Me (radiology report reviewed by me) Departure Communication Progress Notes Diagnostic findings discussed with the patient. Left ankle and left knee wrapped with a 3 inch Emmanuel wrap. Discharged to home. Impression Impression: Primary Impression: Sprain of knee Qualified Codes: S83.92XA - Sprain of unspecified site of left knee, initial encounter Additional Impression: Ankle sprain Qualified Codes: S93.402A - Sprain of unspecified ligament of left ankle, initial encounter Disposition: HOME, SELF-CARE Condition: Improved Departure-Patient Inst. Decision time for Depature: 12:30 Referrals: LORRAINE DE LOS SANTOS DO (PCP) Primary Care Physician SEAN BUTCHER (Family) Primary Care Physician Patient Instructions: Knee Sprain (DC), Ankle Sprain (DC) Add. Discharge Instructions: All discharge instructions reviewed with patient and/or family. Voiced understanding. Tylenol extra strength [id number] as directed for pain. Ibuprofen 800 mg by mouth every 8 hours as needed for pain. Elevate the left leg on pillows above the level of the heart. Ice pack for 20 minute intervals as needed for pain for 2-3 days, then use a heating pad or pack if needed. Emmanuel wrap as instructed. Increase activity as tolerated. Follow-up with your family practitioner for recheck if no improvement in symptoms in 7-10 days. Return to the emergency department for worsened symptoms or any other concerns. DANIEL AGUILAR Aug 12, 2016 12:31
[2016-08-12] MEDS ORDERED: HYDROcodone/APAP 5 MG/325 MG (LORTAB) TAB PO STA (12:32)
[2016-08-12 12:45] VITALS: BP 114/63
== END 2016-08-12 12:45 | disposition home or self-care (01) ==
LOC: EDUNIT# 11:41 → ER 11:43
DX: S83.92XA Sprain of unspecified site of left knee, initial encounter (principal); S93.402A Sprain of unspecified ligament of left ankle, initial encounter; E11.9 Type 2 diabetes mellitus without complications; J44.9 Chronic obstructive pulmonary disease, unspecified; F17.210 Nicotine dependence, cigarettes, uncomplicated; Z79.84 Long term (current) use of oral hypoglycemic drugs; Z79.82 Long term (current) use of aspirin; Z79.899 Other long term (current) drug therapy; X50.0XXA Overexertion from strenuous movement or load, initial encounter; Y99.8 Other external cause status
CPT/HCPCS: 73562; 73610; 99283

== ENCOUNTER → 2016-08-15 | Outpatient (CLI) | payer MEDICARE ==
[~2016-08-15] MED LIST changes: +BUSP10TA95; +OXCA600T; +ZIPR80CA23
--- NOTE | 2016-08-15 14:42 | Diagnostic Imaging Report ---
EXAMINATION: Left breast diagnostic mammogram with a Computer Aided Detection (CAD) system. INDICATION: Left axillary pain. COMPARISON: 06/21/2016. FINDINGS: The left breast demonstrates heterogeneously dense parenchyma which may decrease mammographic sensitivity. There is no mass, architectural distortion, or suspicious cluster of calcifications seen. The recent lumpectomy along the medial aspect of the left breast demonstrates slight postsurgical change with minimal focal increased density in the medial aspect of the left breast. IMPRESSION: Mild changes in the medial aspect of the left breast are probably related to post lumpectomy findings. No suspicious finding. The ultrasound evaluation is pending. ACR BI-RADS Category 0: Incomplete. (Needs additional imaging evaluation). Result letter will be mailed to the patient. Note: At least 10% of breast cancer is not imaged by mammography. Dictated by: Dictated on workstation # [id number]
--- NOTE | 2016-08-15 19:44 | Diagnostic Imaging Report ---
Left breast ultrasound. INDICATION: Left axillary lump FINDINGS: The area of the lump was found to be relatively vague and near the axillary region of the left breast. At this location, there is a benign-appearing lymph node with preserved fatty hilum measuring 1.3 x 0.8 x 1.4 CM. No suspicious masses seen. IMPRESSION: Benign-appearing 1.4 CM lymph node in the left axilla is seen. No suspicious mass. Clinical followup recommended. ACR BI-RADS Category 2: Benign findings. Dictated by: Dictated on workstation # [id number]
== END ==
LOC: RAD 08:27
PROVIDERS: ATTEND Nurse Practitioner Family
DX: M79.622 Pain in left upper arm (principal)
CPT/HCPCS: 76642

== ENCOUNTER 2016-09-27 11:55 | Emergency (ER) | payer MEDICARE ==
[~2016-09-27] VITALS: Ht 165.1 cm; Wt 88.9 kg
--- NOTE | 2016-09-27 12:28 | ED GU-Female ---
General Chief Complaint: -Female Stated Complaint: UNABLE TO URINATE Source: patient Exam Limitations: no limitations History of Present Illness Time seen by provider: 12:26 Initial Comments To ER complaint by her with reports of inability to urinate since 7 a.m. this morning. She has suprapubic and diffuse abdominal discomfort. She has a history of "dropped bladder" for which she is following with Dr. German, urologist in [place]. She states that she sees him later next week with the plan to initiate self catheterizing at home as she's had this problem before most recently in February. She denies fevers or chills but she does have associated nausea. Timing/Duration: this morning Severity/Quality: moderate Location: suprapubic, left flank Radiation: none Prior Genitourinary Problems: none Allergies and Home Medications Allergies Coded Allergies: cephalexin (Verified Allergy, Mild, 06/21/16) Penicillins (Verified Allergy, Unknown, 06/18/16) Sulfa (Sulfonamide Antibiotics) (Verified Allergy, Unknown, 06/18/16) clindamycin (Verified Allergy, Unknown, 08/12/16) cyclobenzaprine (Verified Allergy, Unknown, 08/12/16) sucralfate (Verified Allergy, Unknown, 06/18/16) sulfamethoxazole (Verified Allergy, Unknown, 08/12/16) trimethoprim (Verified Allergy, Unknown, 08/12/16) Uncoded Allergies: cholafil (Allergy, Unknown, 08/12/16) Home Medications Albuterol Sulfate 0.63 Mg/3 Ml Vial.neb, 0.63 MG IH Q4H PRN for SHORTNESS OF BREATH, (Reported) Aspirin 81 Mg Tablet.dr, 81 MG PO DAILY, (Reported) Atorvastatin Calcium 40 Mg Tablet, 40 MG PO HS, (Reported) Buspirone HCl 10 Mg Tablet, #30 (Reported) Citalopram Hydrobromide 40 Mg Tablet, 40 MG PO DAILY, (Reported) Furosemide 40 Mg Tablet, 40 MG PO DAILY, (Reported) Gabapentin 800 Mg Tablet, 800 MG PO TID, (Reported) Glipizide 5 Mg Tablet, 2.5 MG PO DAILY, (Reported) take 1/2 of 5mg tab Hydroxyzine HCl 25 Mg Tablet, 25 MG PO BID PRN for ANXIETY, (Reported) Lamotrigine 25 Mg Tablet, 50 MG PO DAILY, (Reported) take 2 (25mg) tabs Levothyroxine Sodium 50 Mcg Tablet, 50 MCG PO DAILY, (Reported) Lisinopril 2.5 Mg Tablet, 2.5 MG PO DAILY, (Reported) Oxcarbazepine 600 Mg Tablet, #60 (Reported) Pantoprazole Sodium 40 Mg Tablet.dr, 40 MG PO DAILY, #30 Ref 3 Prescribed by: GERARDO JARAMILLO on 05/29/16 1140 Tizanidine HCl 4 Mg Tablet, 4 MG PO TID, (Reported) Topiramate 50 Mg Tablet, 50 MG PO BID, (Reported) Ziprasidone HCl 80 Mg Capsule, #30 (Reported) Constitutional: see HPI, No chills, No fever EENTM: see HPI Respiratory: no symptoms reported Cardiovascular: no symptoms reported Genitourinary: see HPI, flank pain, other (retention) Musculoskeletal: no symptoms reported Skin: no symptoms reported Psychiatric/Neurological: No Symptoms Reported Endocrine: No Symptoms Reported Past Fqopsgr-Ljccrj-Aycbry Hx Patient Social History Alcohol Use: Denies Use Recreational Drug Use: No Smoking Status: Current Everyday Smoker Type Used: Cigarettes 2nd Hand Smoke Exposure: Yes Recent Foreign Travel: No Contact w/Someone Who Travel: No Recent Hopitalizations: No Immunizations Up To Date Date of Pneumonia Vaccine: Dec 26, 2015 Date of Influenza Vaccine: Dec 26, 2015 Seasonal Allergies Seasonal Allergies: Yes Surgeries HX Surgeries: Yes (DXLS) Surgeries: Appendectomy, Section, Gallbladder, Hysterectomy Respiratory Hx Respiratory Disorders: Yes Respiratory Disorders: Asthma, COPD Cardiovascular Hx Cardiac Disorders: Yes (MILD [place]-2013) Cardiac Disorders: Hypertension Neurological Hx Neurological Disorders: Yes Neurological Disorders: Headaches /Migraines, Neuropathy, Parkinson's Disease Reproductive System Hx Reproductive Disorders: No Sexually Transmitted Disease: No 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, Menopausal Genitourinary Hx Genitourinary Disorders: No Gastrointestinal Hx Gastrointestinal Disorders: Yes (spot on liver) Gastrointestinal Disorders: Gastroesophageal Reflux, Chronic Diarrhea, Hiatal Hernia, Irritable Bowel Musculoskeletal Hx Musculoskeletal Disorders: Yes (restless syndrome) Musculoskeletal Disorders: Fibromyalgia Endocrine Hx Endocrine Disorders: Yes Endocrine Disorders: Hypothyroidsim, Diabetes, Non-Insulin dep HEENT HX ENT Disorders: Yes (GLASSES) Loss of Vision: Bilateral Hearing Impairment: Denies Cancer Hx Cancer: No Psychosocial Hx Psychiatric Problems: Yes Behavioral Health Disorders: Anxiety, PTSD, Bipolar, Depression Integumentary HX Skin/Integumentary Disorder: No Blood Transfusions Hx Blood Disorders: Yes (ANEMIA) Adverse Reaction to a Blood Tr: No Family Medical History Significant Family History: No Pertinent Family Hx Physical Exam Vital Signs Vital Sign - Last 12Hours 09/27/16 12:23 Temp 98.5 Pulse 71 Resp 18 B/P (MAP) 122/80 Capillary Refill : General Appearance: WD/WN, no apparent distress, other (upon arrival to ER a Fulton catheter was placed with immediate return of 750 mL of very dilute appearing urine. This did significantly improve her pain, however, she does still have significant tenderness to the entire abdomen.) HEENT: PERRL/EOMI Neck: non-tender, full range of motion Respiratory: no respiratory distress, no accessory muscle use Gastrointestinal: normal bowel sounds, soft, No distended, rebound, tenderness Neurologic/Psychiatric: alert, normal mood/affect, oriented x 3 Skin: normal color, warm/dry Progress/Results/Core Measures Results/Orders Lab Results Laboratory Tests Test 09/27/16 12:35 Range/Units White Blood Count 6.7 4.3-11.0 10^3/uL Red Blood Count 4.28 L 4.35-5.85 10^6/uL Hemoglobin 13.2 11.5-16.0 G/DL Hematocrit 40 35-52 % Mean Corpuscular Volume 94 80-99 FL Mean Corpuscular Hemoglobin 31 25-34 PG Mean Corpuscular Hemoglobin Concent 33 32-36 G/DL Red Cell Distribution Width 13.0 10.0-14.5 % Platelet Count 217 130-400 10^3/uL Mean Platelet Volume 10.2 7.4-10.4 FL Neutrophils (%) (Auto) 50 42-75 % Lymphocytes (%) (Auto) 42 12-44 % Monocytes (%) (Auto) 5 0-12 % Eosinophils (%) (Auto) 2 0-10 % Basophils (%) (Auto) 0 0-10 % Neutrophils # (Auto) 3.3 1.8-7.8 X 10^3 Lymphocytes # (Auto) 2.9 1.0-4.0 X 10^3 Monocytes # (Auto) 0.4 0.0-1.0 X 10^3 Eosinophils # (Auto) 0.2 0.0-0.3 10^3/uL Basophils # (Auto) 0.0 0.0-0.1 10^3/uL Urine Color YELLOW Urine Clarity SLIGHTLY CLOUDY Urine pH 8 5-9 Urine Specific [place] 1.010 L 1.016-1.022 Urine Protein NEGATIVE NEGATIVE Urine Glucose (UA) NEGATIVE NEGATIVE Urine Ketones NEGATIVE NEGATIVE Urine Nitrite NEGATIVE NEGATIVE Urine Bilirubin NEGATIVE NEGATIVE Urine Urobilinogen NORMAL NORMAL MG/DL Urine Leukocyte Esterase NEGATIVE NEGATIVE Urine RBC (Auto) NEGATIVE NEGATIVE Urine RBC NONE /HPF Urine WBC NONE /HPF Urine Squamous Epithelial Cells RARE /HPF Urine Crystals NONE /LPF Urine Bacteria NEGATIVE /HPF Urine Casts NONE /LPF Urine Mucus NEGATIVE /LPF Urine Culture Indicated NO Sodium Level 140 135-145 MMOL/L Potassium Level 3.5 L 3.6-5.0 MMOL/L Chloride Level 107 98-107 MMOL/L Carbon Dioxide Level 28 21-32 MMOL/L Anion Gap 5 5-14 MMOL/L Blood Urea Nitrogen 8 7-18 MG/DL Creatinine 0.73 0.60-1.30 MG/DL Estimat Glomerular Filtration Rate > 60 BUN/Creatinine Ratio 11 Glucose Level 94 70-105 MG/DL Calcium Level 8.8 8.5-10.1 MG/DL Total Bilirubin 0.4 0.1-1.0 MG/DL Aspartate Amino Transf (AST/SGOT) 12 5-34 U/L Alanine Aminotransferase (ALT/SGPT) 20 0-55 U/L Alkaline Phosphatase 125 40-136 U/L Total Protein 6.2 L 6.4-8.2 GM/DL Albumin 3.7 3.2-4.5 GM/DL My Orders Orders - KOFFI STEIN APRN Ua Culture If Indicated (09/27/16 12:07) Cbc With Automated Diff (09/27/16 12:25) Comprehensive Metabolic Panel (09/27/16 12:25) Ua Culture If Indicated (09/27/16 12:25) Saline Lock/Iv-Start (09/27/16 12:25) Ct Abdomen/Pelvis W (09/27/16 12:25) Fulton Cath Insertion (09/27/16 12:41) Iohexol Injection (Omnipaque 350 Mg/Ml 1 (09/27/16 13:15) Ns (Ivpb) (Sodium Chloride 0.9% Ivpb Bag (09/27/16 13:15) Sodium Chloride Flush (Catheter Flush Sy (09/27/16 13:15) Medications Given in ED Current Medications Medications Dose Ordered Sig/Fermin Route Start Time Stop Time Status Last Admin Dose Admin Iohexol 100 ml ONCE ONCE IV 09/27/16 13:15 09/27/16 13:16 DC 09/27/16 13:26 100 ML Sodium Chloride 10 ml NEEDED PRN IV 09/27/16 13:15 09/27/16 13:26 10 ML Sodium Chloride 100 ml ONCE ONCE IV 09/27/16 13:15 09/27/16 13:16 DC 09/27/16 13:26 80 ML Vital Signs/I&O Vital Sign - Last 12Hours 09/27/16 12:23 Temp 98.5 Pulse 71 Resp 18 B/P (MAP) 122/80 Diagnostic Imaging Diagonstic Imaging: CT Comments NAME: ETHAN SORENSEN [facility] REC#: [id number] PT STATUS: REG ER : 1965 PHYSICIAN: KOFFI STEIN PHYSICIAN EXTENDER ADMIT DATE: 09/27/16/ER Draft Date of Exam:09/27/16 CT ABDOMEN/PELVIS W PROCEDURE: CT abdomen and pelvis with contrast. TECHNIQUE: Multiple contiguous axial images were obtained through the abdomen and pelvis after administration of intravenous contrast. INDICATION: Dysuria. Comparison is made to study of 04/25/2016. There is mild low-density in the liver with previous cholecystectomy. Probable cyst in the inferior portion of the right hepatic lobe is stable. There is diffuse prominence of the extrahepatic biliary tree which may be related to previous cholecystectomy. No pancreatic, splenic or adrenal gland abnormality is identified. Kidneys have a normal appearance with bilateral contrast excretion. No urinary tract calculus is identified. The bladder is decompressed around a Fulton catheter balloon. There is no free fluid in the abdomen or pelvis. There is a small amount of probable edema or inflammation in the right perirectal fat which is not included on the previous study. No pathologic adenopathy is identified. There is mild aortoiliac atherosclerotic calcification. IMPRESSION: Essentially no change when compared to previous study. No acute abnormality is identified. In particular, is no evidence of abnormality in the urinary tract although the bladder is decompressed around a Fulton catheter. Small amount of fluid or edema is seen in the right perirectal fat. This region was not included on the previous study. This region could be further evaluated endoscopically or with contrast enema. Dictated on workstation # [id number] Dict: 09/27/16 1400 Trans: 09/27/16 1412 [facility] [place] [phone] Interpreted by: COLE FRANCOIS MD Electronically signed by: Departure Communication Progress Notes 1429- pain free at this time. Fulton catheter removed. Impression Impression: Primary Impression: Urinary retention Disposition: 01 HOME, SELF-CARE Condition: Stable Departure-Patient Inst. Decision time for Depature: 14:15 Referrals: LORRAINE DE LOS SANTOS DO (PCP) Primary Care Physician SEAN BUTCHER (Family) Primary Care Physician Patient Instructions: Urinary Retention Add. Discharge Instructions: 1. Return to ER for any concerns 2. Take medications as directed 3. All discharge instructions reviewed with patient and/or family. Voiced understanding. KOFFI STEIN APRN Sep 27, 2016 12:28
[2016-09-27 12:42] LABS: BASOPHILS % (AUTO) 0 % (0-10); BILIRUBIN,URINE NEGATIVE (NEGATIVE); EOSINOPHILS # (AUTO) 0.2 10^3/uL (0.0-0.3); EOSINOPHILS % (AUTO) 2 % (0-10); KETONES,URINE NEGATIVE (NEGATIVE); LEUKOCYTE ESTERASE ,URINE NEGATIVE (NEGATIVE); LYMPHOCYTES # (AUTO) 2.9 X 10^3 (1.0-4.0); LYMPHOCYTES % (AUTO) 42 % (12-44); MEAN CORPUSCULAR HEMOGLOBIN 31 PG (25-34); MEAN CORPUSCULAR HGB CONC 33 G/DL (32-36); MEAN CORPUSCULAR VOLUME 94 FL (80-99); MEAN PLATELET VOLUME 10.2 FL (7.4-10.4); MONOCYTES # (AUTO) 0.4 X 10^3 (0.0-1.0); MONOCYTES % (AUTO) 5 % (0-12); NEUTROPHILS # (AUTO) 3.3 X 10^3 (1.8-7.8); NEUTROPHILS % (AUTO) 50 % (42-75); NITRITE,URINE NEGATIVE (NEGATIVE); PH,URINE 8 (5-9); PLATELET COUNT 217 10^3/uL (130-400); PROTEIN,URINE NEGATIVE (NEGATIVE); RED BLOOD COUNT 4.28 10^6/uL (4.35-5.85); UROBILINOGEN,URINE NORMAL (NORMAL); WHITE BLOOD COUNT 6.7 10^3/uL (4.3-11.0)
[2016-09-27 12:49] LABS: SQUAMOUS EPITHELIAL CELL,UR RARE /HPF
[2016-09-27 13:01] LABS: ALANINE AMINOTRANSFERASE 20 U/L (0-55); ALBUMIN 3.7 GM/DL (3.2-4.5); ANION GAP 5 MMOL/L (5-14); ASPARTATE AMINO TRANSFERASE 12 U/L (5-34); BILIRUBIN,TOTAL 0.4 MG/DL (0.1-1.0); BLOOD UREA NITROGEN 8 MG/DL (7-18); BUN/CREATININE RATIO 11; CALCIUM 8.8 MG/DL (8.5-10.1); CARBON DIOXIDE 28 MMOL/L (21-32); CHLORIDE 107 MMOL/L (98-107); CREATININE SERUM 0.73 MG/DL (0.60-1.30); GFR ESTIMATED > 60; GLUCOSE 94 MG/DL (70-105); POTASSIUM 3.5 MMOL/L (3.6-5.0); SODIUM 140 MMOL/L (135-145); TOTAL PROTEIN 6.2 GM/DL (6.4-8.2)
[2016-09-27] MEDS: IOHEXOL 350 MG/ML 100 ML (OMNIPAQUE 350) VIAL IV ONE (13:26)
[2016-09-27] MEDS: CATHETER FLUSH 10 ML SYR IV PRN (13:26)
[2016-09-27] MEDS: NS 100 ML (IVPB) BAG IV ONE (13:26)
--- NOTE | 2016-09-27 14:13 | Diagnostic Imaging Report ---
PROCEDURE: CT abdomen and pelvis with contrast. TECHNIQUE: Multiple contiguous axial images were obtained through the abdomen and pelvis after administration of intravenous contrast. INDICATION: Dysuria. Comparison is made to study of 04/25/2016. There is mild low-density in the liver with previous cholecystectomy. Probable cyst in the inferior portion of the right hepatic lobe is stable. There is diffuse prominence of the extrahepatic biliary tree which may be related to previous cholecystectomy. No pancreatic, splenic or adrenal gland abnormality is identified. Kidneys have a normal appearance with bilateral contrast excretion. No urinary tract calculus is identified. The bladder is decompressed around a Fulton catheter balloon. There is no free fluid in the abdomen or pelvis. There is a small amount of probable edema or inflammation in the right perirectal fat which is not included on the previous study. No pathologic adenopathy is identified. There is mild aortoiliac atherosclerotic calcification. IMPRESSION: Essentially no change when compared to previous study. No acute abnormality is identified. In particular, is no evidence of abnormality in the urinary tract although the bladder is decompressed around a Fulton catheter. Small amount of fluid or edema is seen in the right perirectal fat. This region was not included on the previous study. This region could be further evaluated endoscopically or with contrast enema. Dictated by: Dictated on workstation # [id number]
[2016-09-27 14:30] VITALS: BP 130/84
== END 2016-09-27 14:30 | disposition home or self-care (01) ==
LOC: EDUNIT# 11:55 → ER 11:59
DX: R33.9 Retention of urine, unspecified (principal); I25.2 Old myocardial infarction; I10 Essential (primary) hypertension; J44.9 Chronic obstructive pulmonary disease, unspecified; F43.10 Post-traumatic stress disorder, unspecified; F31.9 Bipolar disorder, unspecified; F41.9 Anxiety disorder, unspecified; F17.210 Nicotine dependence, cigarettes, uncomplicated; Z46.6 Encounter for fitting and adjustment of urinary device; Z90.49 Acquired absence of other specified parts of digestive tract; Z90.710 Acquired absence of both cervix and uterus; Z79.82 Long term (current) use of aspirin
CPT/HCPCS: 36415; 51702; 74177; 80053; 81000; 85025